=== PATIENT | female | born 1970 | race Asian ===

== ENCOUNTER 2024-12-18 16:07 | Inpatient (IN) | payer OTHER ==
[2024-12-18 17:45] LABS: BASO % 0.1 % (0-2.0); EOS % 0.2 % (0-4.5); HEMATOCRIT 27.5 % (32.4-45.2); HEMOGLOBIN 8.6 GM/dL (10.7-15.3); LYMPH % 17.6 % (8-40); MCHC 31.4 g/dl (32.0-36.0); MEAN CELL VOLUME 70.1 fl (80-96); MEAN PLT VOLUME 6.9 fl (7.5-11.1); MONO % 10.7 % (3.8-10.2); NEUT % 71.4 % (42.8-82.8); PLATELET COUNT 502 10^3/uL (134-434); RBC 3.93 M/mm3 (3.60-5.2); WHITE BLOOD COUNT 14.2 K/mm3 (4.0-10.0)
[2024-12-18 18:12] LABS: POTASSIUM 4.6 mmol/L (3.5-5.1)
[2024-12-18 18:15] LABS: CALCIUM 8.9 mg/dL (8.5-10.1)
[2024-12-18 18:16] LABS: ALBUMIN 3.1 g/dl (3.4-5.0); BLOOD UREA NITROGEN 10.3 mg/dL (7-18)
[2024-12-18 18:19] LABS: CREATININE 0.8 mg/dL (0.55-1.3)
[2024-12-18 18:21] LABS: TOT PROT 7.7 g/dl (6.4-8.2)
[2024-12-18 18:22] LABS: BILIRUBIN,TOTAL 0.5 mg/dL (0.2-1)
[2024-12-18] MEDS ORDERED: AZITHROMYCIN 500 MG TABLET ONE (19:00)
[2024-12-18] MEDS ORDERED: CEFTRIAXONE 1 G/50 ML PREMIX 50 ML IVPB ONE (19:00)
[2024-12-18] MEDS: AZITHROMYCIN 250 MG TABLET PO ONE (19:10)
[2024-12-18 20:46] LABS: ANISOCYTOSIS 1+; MACROCYTOSIS 1+
[2024-12-18] MEDS ORDERED: methylPREDNISolone NA SUCC 40 MG/1 ML VIAL IVPUSH SCH (22:15)
[2024-12-18] MEDS ORDERED: ALBUTEROL SO4 2.5/IPRATROPIUM 0.5 INH SOL 3 ML VIAL.NEB. NEB ONE (22:39)
[2024-12-18] MEDS ORDERED: methylPREDNISolone NA SUCC 40 MG/1 ML VIAL ONE (22:40)
[2024-12-18] MEDS: ALBUTEROL SO4 2.5/IPRATROPIUM 0.5 INH SOL 3 ML VIAL.NEB. NEB SCH (22:47)
[2024-12-18] MEDS: methylPREDNISolone NA SUCC 40 MG/1 ML VIAL IVPUSH ONE (22:47)
[2024-12-18 23:46] VITALS: RESP 18; BMI 27.6
[2024-12-19] MEDS: MELATONIN 5 MG TABLETS PO PRN (02:42)
[2024-12-19] MEDS: guaiFENesin/D-METHORPHAN HB 10 ML UNIT-DOSE CUPS PO PRN (02:42)
[2024-12-19 05:02] LABS: URINE APPEARANCE CLEAR; URINE BILIRUBIN NEGATIVE (NEGATIVE); URINE COLOR YELLOW; URINE GLUCOSE (UA) 2+ (NEGATIVE); URINE KETONE NEGATIVE (NEGATIVE); URINE LEUK ESTERASE NEGATIVE (NEGATIVE); URINE NITRITE NEGATIVE (NEGATIVE); URINE PROTEIN NEGATIVE (NEGATIVE); URINE UROBILINOGEN 0.2 mg/dL (0.2-1.0)
[2024-12-19] MEDS: INSULIN ASPART SLIDING SCALE (NOVOLOG) 1 VIAL SQ SCH ×2 (06:22→11:21)
[2024-12-19] MEDS: SODIUM CHLORIDE 1,000 ML IV STA (06:22)
[2024-12-19] MEDS: methylPREDNISolone NA SUCC 40 MG/1 ML VIAL IVPUSH SCH (06:22)
[2024-12-19 08:40] LABS: HEMOGLOBIN 8.5 GM/dL (10.7-15.3); MCH 22.4 pg (25.7-33.7); MCHC 31.6 g/dl (32.0-36.0); MEAN CELL VOLUME 70.8 fl (80-96); MEAN PLT VOLUME 7.1 fl (7.5-11.1); PLATELET COUNT 512 10^3/uL (134-434); RBC 3.82 M/mm3 (3.60-5.2); RDW 15.9 % (11.6-15.6); WHITE BLOOD COUNT 7.5 K/mm3 (4.0-10.0)
[2024-12-19 08:58] LABS: POTASSIUM 4.5 mmol/L (3.5-5.1)
[2024-12-19 09:06] LABS: ALBUMIN 2.9 g/dl (3.4-5.0); BLOOD UREA NITROGEN 10.9 mg/dL (7-18); CALCIUM 9.7 mg/dL (8.5-10.1)
[2024-12-19 09:09] LABS: CREATININE 0.8 mg/dL (0.55-1.3)
[2024-12-19 09:10] LABS: BILIRUBIN,TOTAL 0.4 mg/dL (0.2-1); TOT PROT 7.3 g/dl (6.4-8.2)
[2024-12-19] MEDS: CEFTRIAXONE 1 G/50 ML PREMIX 50 ML IVPB SCH (09:18)
[2024-12-19] MEDS: LOSARTAN POTASSIUM 50 MG TABLET PO SCH (09:18)
[2024-12-19] MEDS: AZITHROMYCIN IVPB 500 MG/250 ML BAG IVPB SCH (09:19)
[2024-12-19] MEDS: INSULIN (LEVEMIR) 100 UNITS/ML UNITS SQ SCH (09:19)
[2024-12-19] MEDS: SODIUM CHLORIDE 1,000 ML IV SCH (09:20)
[2024-12-19 13:05] LABS: POTASSIUM 4.3 mmol/L (3.5-5.1)
[2024-12-19 13:08] LABS: BLOOD UREA NITROGEN 13.6 mg/dL (7-18)
[2024-12-19 13:11] LABS: CREATININE 0.8 mg/dL (0.55-1.3)
[2024-12-19] MEDS: ENOXAPARIN NA (PORCINE) 40 MG/0.4 ML DISP.SYRIN SQ SCH (15:24)
[2024-12-19 20:14] LABS: POTASSIUM 4.4 mmol/L (3.5-5.1)
[2024-12-19 20:16] LABS: CALCIUM 9.3 mg/dL (8.5-10.1)
[2024-12-19 20:17] LABS: ALBUMIN 2.9 g/dl (3.4-5.0); BLOOD UREA NITROGEN 14.8 mg/dL (7-18)
[2024-12-19 20:20] LABS: CREATININE 0.8 mg/dL (0.55-1.3)
[2024-12-19 20:22] LABS: BILIRUBIN,TOTAL 0.2 mg/dL (0.2-1); TOT PROT 7.7 g/dl (6.4-8.2)
[2024-12-19] MEDS: guaiFENesin/CODEINE 10 ML UNIT-DOSE CUPS PO PRN (21:57)
[2024-12-20] MEDS ORDERED: INSULIN (LEVEMIR) 100 UNITS/ML UNITS SQ ONE (11:28)
[2024-12-20] MEDS: PATIENT'S OWN MEDICATION (NON-FORMULARY) (Pravastatin Sodium [Pravastatin Sodium] 20 MG Ta PO SCH (12:14)
[2024-12-20] MEDS: INSULIN ASPART SLIDING SCALE (NOVOLOG) 1 VIAL SQ SCH (17:31)
[2024-12-20 19:18] LABS: HEMOGLOBIN 8.8 GM/dL (10.7-15.3); LYMPH % 14.8 % (8-40); MCH 22.2 pg (25.7-33.7); MCHC 31.4 g/dl (32.0-36.0); MEAN CELL VOLUME 70.6 fl (80-96); MEAN PLT VOLUME 6.9 fl (7.5-11.1); MONO % 5.6 % (3.8-10.2); NEUT % 79.6 % (42.8-82.8); PLATELET COUNT 622 10^3/uL (134-434); RBC 3.96 M/mm3 (3.60-5.2); RDW 15.9 % (11.6-15.6); WHITE BLOOD COUNT 10.5 K/mm3 (4.0-10.0)
[2024-12-20 19:46] LABS: POTASSIUM 4.8 mmol/L (3.5-5.1)
[2024-12-20 19:48] LABS: ALBUMIN 2.8 g/dl (3.4-5.0); BLOOD UREA NITROGEN 23.5 mg/dL (7-18); CALCIUM 9.3 mg/dL (8.5-10.1)
[2024-12-20 19:52] LABS: CREATININE 0.9 mg/dL (0.55-1.3)
[2024-12-20 19:53] LABS: BILIRUBIN,TOTAL 0.1 mg/dL (0.2-1); TOT PROT 7.4 g/dl (6.4-8.2)
[2024-12-20] MEDS: INSULIN (LEVEMIR) 100 UNITS/ML UNITS SQ SCH (20:50)
[2024-12-20] MEDS: methylPREDNISolone NA SUCC 40 MG/1 ML VIAL IVPUSH SCH (21:25)
[2024-12-21 09:42] LABS: BASO % 0.2 % (0-2.0); HEMATOCRIT 28.6 % (32.4-45.2); HEMOGLOBIN 8.8 GM/dL (10.7-15.3); LYMPH % 28.7 % (8-40); MCH 21.9 pg (25.7-33.7); MCHC 30.6 g/dl (32.0-36.0); MEAN CELL VOLUME 71.5 fl (80-96); MEAN PLT VOLUME 6.9 fl (7.5-11.1); MONO % 7.1 % (3.8-10.2); PLATELET COUNT 664 10^3/uL (134-434); RDW 15.7 % (11.6-15.6)
[2024-12-21 10:09] LABS: POTASSIUM 4.3 mmol/L (3.5-5.1)
[2024-12-21 10:24] LABS: ALBUMIN 3.1 g/dl (3.4-5.0); BLOOD UREA NITROGEN 17.2 mg/dL (7-18); CALCIUM 9.8 mg/dL (8.5-10.1)
[2024-12-21 10:27] LABS: CREATININE 0.7 mg/dL (0.55-1.3)
[2024-12-21 10:29] LABS: TOT PROT 7.8 g/dl (6.4-8.2)
[2024-12-21 10:33] LABS: BILIRUBIN,TOTAL 0.2 mg/dL (0.2-1)
[2024-12-21] MEDS: predniSONE 20 MG TABLET (UD) PO ONE (10:49)
[2024-12-21 13:45] VITALS: BP 125/72; PULSE 78; TEMP 97.7
== END 2024-12-21 14:11 | disposition home or self-care (01) | DRG 139 ==
LOC: JER 16:07 → JERBED 19:32 → J8W 23:15
PROVIDERS: ADMIT Internal Medicine; ATTEND Nurse Practitioner Family
DX: J11.00 Influenza due to unidentified influenza virus with unspecified type of pneumonia (principal); I10 Essential (primary) hypertension; E78.5 Hyperlipidemia, unspecified; E11.9 Type 2 diabetes mellitus without complications; D50.9 Iron deficiency anemia, unspecified; E87.1 Hypo-osmolality and hyponatremia; G47.00 Insomnia, unspecified; E87.8 Other disorders of electrolyte and fluid balance, not elsewhere classified; R01.1 Cardiac murmur, unspecified; F41.8 Other specified anxiety disorders; D72.829 Elevated white blood cell count, unspecified
CPT/HCPCS: 0241U-QW; 36415; 71045-TC-FY; 80048; 80053; 81003; 82533; 82607; 82728; 82962; 83036; 83540; 83550; 83615; 83735; 83935; 84300; 84439; 84443; 84484; 85025; 85027; 87081; 87899; 93005; 93010; 94010; 94640; 99285-25